=== PATIENT | female | born 2000 | race Caucasian/White ===

== ENCOUNTER → 2024-11-22 12:19 | Outpatient (CLI) | payer BC, SELFPAY ==
[2024-11-22 12:51] LABS: Add Manual Diff / Slide Review NO; Hematocrit 39.7 % (36-46); Hemoglobin 13.6 g/dL (12.0-16.0); Lymphocytes Absolute Auto 1600 /uL (1100-4500); Mean Corpuscular HGB Conc 34.3 % (30-36); Mean Corpuscular Hemoglobin 30.5 PG (26-34); Mean Corpuscular Volume 89.0 fL (80-100); Platelet Count 308 X10^3/uL (150-400)
[2024-11-22 13:26] LABS: Alanine Aminotransferase 16 IU/L (<35); Albumin 4.5 g/dL (3.5-5.0); Albumin Globulin Ratio 1.7 (1.0-2.8); Alkaline Phosphatase 61 U/L (38-126); Blood Urea Nitrogen 9 mg/dL (7-17); Calcium 9.4 mg/dL (8.4-10.2); Carbon Dioxide 28 mmol/L (22-32); Chloride 102 mmol/L (98-107); Estimated Glomerular Filt Rate > 60 mL/min (>60); Globulin 2.7 g/dL (1.7-4.1); Glucose 116 mg/dL (70-99); HEMOLYSIS < 15 (0-50); Potassium 4.2 mmol/L (3.4-5.1); Sodium 137 mmol/L (137-145); Total Protein 7.2 g/dL (6.3-8.2)
[2024-11-22 14:01] LABS: Ferritin 61 ng/mL (6-137)
[2024-11-22 15:21] LABS: Vitamin D 25 Hydroxy (D3) 44.8 ng/mL (30.0-100.0)
[2024-11-23 15:08] LABS: Hepatitis B Surface Antigen NEGATIVE s/c (NEGATIVE)
== END ==
PROVIDERS: PCP Family Medicine; Referring Provider Family Medicine; Visit Provider Family Medicine
DX: Z02.1 Encounter for pre-employment examination (principal); F90.0 Attention-deficit hyperactivity disorder, predominantly inattentive type; Z83.42 Family history of familial hypercholesterolemia; E61.1 Iron deficiency; E55.9 Vitamin D deficiency, unspecified
CPT/HCPCS: 36415; 80053; 82306; 82728; 85025; 86706; 87340